=== PATIENT | female | born 1985 | race Two or more races ===

== ENCOUNTER 2023-10-10 11:29 | Observation (INO) | payer MEDICAID, OTHER | END 2023-10-10 13:25 | disposition home or self-care (01) | LOC: UNDOADMOB 11:29 → LDRP 11:29 | PROVIDERS: ADMIT Obstetrics & Gynecology; ATTEND Obstetrics & Gynecology | DX: O36.8130 Decreased fetal movements, third trimester, not applicable or unspecified (principal); Z3A.31 31 weeks gestation of pregnancy; V89.2XXA Person injured in unspecified motor-vehicle accident, traffic, initial encounter; Y93.89 Activity, other specified; Y92.89 Other specified places as the place of occurrence of the external cause; Y99.8 Other external cause status | CPT/HCPCS: 59025; 76815; 81002; G0378 ==

== ENCOUNTER 2023-10-11 13:11 | Emergency (ER) | payer MEDICAID, OTHER ==
[~2023-10-11] VITALS: Ht 160 cm; Wt 72.3 kg
[2023-10-11 14:01] LABS: Basophils # (auto) 0 10 ^3/uL (0-0.2); Basophils % (auto) 0.6 % (0.0-2.0); Eosinophils # (auto) 0.1 10 ^3/uL (0-0.8); Eosinophils % (auto) 0.9 % (0.0-7.0); Hematocrit 36.9 % (36.0-46.0); Hemoglobin 12.1 g/dL (12.2-16.2); Lymphocytes # (auto) 1.1 10 ^3/uL (0.4-5.4); Lymphocytes % (auto) 18.4 % (10.0-50.0); Mean Corpuscular Hemoglobin 27.7 pg (28.0-32.0); Mean Corpuscular Hgb Conc. 32.8 g/dL (32.0-36.0); Mean Corpuscular Volume 84.5 fL (80.0-100.0); Monocytes # (auto) 0.4 10 ^3/uL (0-1.3); Monocytes % (auto) 6.4 % (0.0-12.0); Neutrophils # (auto) 4.5 10 ^3/uL (1.6-8.6); Neutrophils % (auto) 73.7 % (37.0-80.0); Red Blood Cells 4.36 10^6/uL (4.0-5.20); Red Cell Distribution Width 13.7 % (11.8-14.3); White Blood Cell 6.1 10^3/uL (4.4-10.8)
[2023-10-11 14:15] LABS: INR 0.96 (0.9-1.15); Partial Thromboplastin Time 26.2 SEC (24.5-34.5); Prothrombin Time 10.2 sec (9.3-11.8)
[2023-10-11 14:16] LABS: Alanine Aminotransferase 11 U/L (7-40); Albumin 4.1 g/dL (3.2-4.8); Alkaline Phosphatase 64 U/L (46-116); Anion Gap 10 (5-15); Aspartate Aminotransferase < 8 U/L (13-40); BUN/Creatinine Ratio 21.1 (10.0-20.0); Blood Urea Nitrogen 12 mg/dL (9-23); Calcium 9.1 mg/dL (8.5-10.1); Carbon Dioxide 21 mmol/L (20-30); Chloride 107 mmol/L (98-107); Glucose 88 mg/dL (74-106); Potassium 3.8 mmol/L (3.5-5.1); Sodium 138 mmol/L (136-145)
[2023-10-11 14:17] LABS: Bilirubin, Total 0.4 mg/dL (0.2-1.0); Total Protein 6.3 g/dL (5.7-8.2)
[2023-10-11] MEDS: HYDROcodone-ACET 5/325MG TAB PO ONE (15:11)
[2023-10-11 15:22] VITALS: BP 97/67; PULSE 66; RESP 17; TEMP 98.7; O2SAT 97
== END 2023-10-11 16:34 | disposition home or self-care (01) ==
LOC: ER 13:11
DX: O9A.213 Injury, poisoning and certain other consequences of external causes complicating pregnancy, third trimester (principal); R10.2 Pelvic and perineal pain; S06.89AA Other specified intracranial injury with loss of consciousness status unknown, initial encounter; Z3A.32 32 weeks gestation of pregnancy; Z98.890 Other specified postprocedural states; V43.52XA Car driver injured in collision with other type car in traffic accident, initial encounter; Y93.89 Activity, other specified; Y92.89 Other specified places as the place of occurrence of the external cause; Y99.8 Other external cause status
CPT/HCPCS: 36415; 76815; 80053; 83735; 83880; 84484; 84702; 85025; 85610; 85730

== ENCOUNTER 2023-10-31 11:00 | Observation (INO) | payer MEDICAID ==
[2023-10-31 12:45] LABS: Urine Bacteria None Seen /hpf (None Seen)
[2023-10-31 12:49] LABS: Basophils # (auto) 0 10 ^3/uL (0-0.2); Basophils % (auto) 0.7 % (0.0-2.0); Eosinophils # (auto) 0.1 10 ^3/uL (0-0.8); Eosinophils % (auto) 0.8 % (0.0-7.0); Hematocrit 33.7 % (36.0-46.0); Hemoglobin 11.3 g/dL (12.2-16.2); Lymphocytes # (auto) 1.3 10 ^3/uL (0.4-5.4); Lymphocytes % (auto) 21.2 % (10.0-50.0); Mean Corpuscular Hemoglobin 27.9 pg (28.0-32.0); Mean Corpuscular Hgb Conc. 33.4 g/dL (32.0-36.0); Mean Corpuscular Volume 83.4 fL (80.0-100.0); Monocytes # (auto) 0.4 10 ^3/uL (0-1.3); Neutrophils # (auto) 4.5 10 ^3/uL (1.6-8.6); Neutrophils % (auto) 71.3 % (37.0-80.0); Red Blood Cells 4.04 10^6/uL (4.0-5.20); Red Cell Distribution Width 14.3 % (11.8-14.3); White Blood Cell 6.3 10^3/uL (4.4-10.8)
[2023-10-31 12:54] LABS: Protein, Urine 8.3 mg/dL (0.0-11.9)
[2023-10-31 12:57] LABS: Creatinine, Urine 70.99 mg/dL (30.0-125.0); Urine Protein/Creatinine Ratio 0.12
[2023-10-31 13:06] LABS: Urine Blood Negative /uL (Negative); Urine Clarity Clear (Clear); Urine Color Light-Yellow (Yellow); Urine Mucus FEW (None Seen); Urine Protein, UAD Negative (Negative); Urine Specific Gravity 1.013 (1.001-1.035); Urine Urobilinogen Normal (Negative); Urine WBC 2 /hpf (0 - 5); Urine pH 6.5 (5.0-9.0)
[2023-10-31] MEDS ORDERED: PREN-96 PO (13:06)
[2023-10-31] MEDS ORDERED: LEVO100T8 PO (13:06)
[2023-10-31 13:15] LABS: Alanine Aminotransferase 10 U/L (7-40); Albumin 3.8 g/dL (3.2-4.8); Alkaline Phosphatase 63 U/L (46-116); Anion Gap 6 (5-15); Aspartate Aminotransferase 18 U/L (13-40); BUN/Creatinine Ratio 14.6 (10.0-20.0); Blood Urea Nitrogen 7 mg/dL (9-23); Calcium 8.9 mg/dL (8.7-10.4); Carbon Dioxide 23 mmol/L (20-30); Chloride 107 mmol/L (98-107); Glucose 82 mg/dL (74-106); Potassium 3.4 mmol/L (3.5-5.1); Sodium 136 mmol/L (136-145); Uric Acid 2.8 mg/dL (3.1-7.8)
[2023-10-31 13:16] LABS: Bilirubin, Total 0.5 mg/dL (0.2-1.0); Total Protein 6.5 g/dL (5.7-8.2)
[2023-10-31 13:25] LABS: Partial Thromboplastin Time 26.3 SEC (24.5-34.5); Prothrombin Time 10.6 sec (9.3-11.8)
== END 2023-10-31 15:08 | disposition home or self-care (01) ==
LOC: UNDOADMOB 11:00 → LDRP 11:00
PROVIDERS: ADMIT Obstetrics & Gynecology; ATTEND Obstetrics & Gynecology
DX: O13.3 Gestational [pregnancy-induced] hypertension without significant proteinuria, third trimester (principal); O09.523 Supervision of elderly multigravida, third trimester; Z3A.34 34 weeks gestation of pregnancy
CPT/HCPCS: 36415; 59025; 76818; 80053; 81001; 81002; 82570; 84156; 84550; 85025; 85610; 85730; 94760; G0378

== ENCOUNTER 2023-11-02 06:22 | Observation (INO) | payer MEDICAID ==
[~2023-11-02 06:22] MED LIST: LEVO100T8 PO; PREN-96 PO
[2023-11-02 10:43] LABS: Protein, Urine < 6.0 mg/dL (0.0-11.9)
[2023-11-02 11:40] LABS: 24 Hr. Total Protein, Urine < 77.99987 mg/24 Hr (<149.1); Urine Total Volume, 24 Hours 1300 mL
== END 2023-11-02 10:54 | disposition home or self-care (01) ==
LOC: LDRP 09:17
PROVIDERS: ADMIT Obstetrics & Gynecology; ATTEND Obstetrics & Gynecology
DX: O99.353 Diseases of the nervous system complicating pregnancy, third trimester (principal); G43.909 Migraine, unspecified, not intractable, without status migrainosus; O26.893 Other specified pregnancy related conditions, third trimester; H53.8 Other visual disturbances; Z3A.35 35 weeks gestation of pregnancy
CPT/HCPCS: 59025; 76818; 81002; 84156; 94760; G0378

== ENCOUNTER 2023-11-10 18:57 | Observation (INO) | payer MEDICAID ==
[~2023-11-10] VITALS: Ht 160 cm; Wt 74.4 kg
[2023-11-10 19:25] LABS: Urine Bacteria None Seen /hpf (None Seen)
[2023-11-10 19:31] LABS: Basophils # (auto) 0 10 ^3/uL (0-0.2); Basophils % (auto) 0.5 % (0.0-2.0); Eosinophils # (auto) 0.1 10 ^3/uL (0-0.8); Eosinophils % (auto) 1.1 % (0.0-7.0); Hemoglobin 11.6 g/dL (12.2-16.2); Lymphocytes # (auto) 1.3 10 ^3/uL (0.4-5.4); Lymphocytes % (auto) 22.3 % (10.0-50.0); Mean Corpuscular Hemoglobin 27.5 pg (28.0-32.0); Mean Corpuscular Hgb Conc. 33.1 g/dL (32.0-36.0); Monocytes # (auto) 0.5 10 ^3/uL (0-1.3); Monocytes % (auto) 7.7 % (0.0-12.0); Neutrophils # (auto) 4.1 10 ^3/uL (1.6-8.6); Neutrophils % (auto) 68.4 % (37.0-80.0); Red Blood Cells 4.22 10^6/uL (4.0-5.20); Red Cell Distribution Width 14.3 % (11.8-14.3)
[2023-11-10 19:35] LABS: Urine Blood Negative /uL (Negative); Urine Clarity Clear (Clear); Urine Color Light-Yellow (Yellow); Urine Protein, UAD Negative (Negative); Urine Specific Gravity 1.019 (1.001-1.035); Urine Urobilinogen Normal (Negative); Urine WBC 1 /hpf (0 - 5)
[2023-11-10 19:45] LABS: Protein, Urine 11.2 mg/dL (0.0-11.9)
[2023-11-10 19:48] LABS: Creatinine, Urine 88.23 mg/dL (30.0-125.0); Urine Protein/Creatinine Ratio 0.13
[2023-11-10 19:49] LABS: INR 0.95 (0.9-1.15); Partial Thromboplastin Time 25.1 SEC (24.5-34.5); Prothrombin Time 10.1 sec (9.3-11.8)
[2023-11-10 19:51] LABS: Alanine Aminotransferase < 9 U/L (7-40); Albumin 3.9 g/dL (3.2-4.8); Alkaline Phosphatase 71 U/L (46-116); Anion Gap 10 (5-15); Aspartate Aminotransferase 12 U/L (13-40); BUN/Creatinine Ratio 14.5 (10.0-20.0); Bilirubin, Total 0.4 mg/dL (0.2-1.0); Blood Urea Nitrogen 9 mg/dL (9-23); Calcium 9.2 mg/dL (8.7-10.4); Carbon Dioxide 22 mmol/L (20-30); Chloride 108 mmol/L (98-107); Glucose 91 mg/dL (74-106); Potassium 3.8 mmol/L (3.5-5.1); Sodium 140 mmol/L (136-145); Total Protein 6.5 g/dL (5.7-8.2)
== END 2023-11-10 20:15 | disposition home or self-care (01) ==
LOC: LDRP 18:57
PROVIDERS: ADMIT Obstetrics & Gynecology; ATTEND Obstetrics & Gynecology
DX: Z36.89 Encounter for other specified antenatal screening (principal); Z3A.36 36 weeks gestation of pregnancy; Z86.2 Personal history of diseases of the blood and blood-forming organs and certain disorders involving the immune mechanism
CPT/HCPCS: 36415; 59025; 76818; 80053; 81001; 81002; 82570; 84156; 84550; 85025; 85610; 85730; 94760; G0378

== ENCOUNTER 2023-11-17 19:50 | Observation (INO) | payer MEDICAID ==
[~2023-11-17] VITALS: Ht 160 cm; Wt 74.4 kg
[2023-11-17 20:35] LABS: Urine Bacteria None Seen /hpf (None Seen)
[2023-11-17 20:54] LABS: Basophils # (auto) 0 10 ^3/uL (0-0.2); Basophils % (auto) 0.6 % (0.0-2.0); Eosinophils # (auto) 0.1 10 ^3/uL (0-0.8); Eosinophils % (auto) 1.1 % (0.0-7.0); Hemoglobin 10.9 g/dL (12.2-16.2); Lymphocytes # (auto) 1.4 10 ^3/uL (0.4-5.4); Lymphocytes % (auto) 22.1 % (10.0-50.0); Mean Corpuscular Hemoglobin 27.1 pg (28.0-32.0); Mean Corpuscular Volume 82.1 fL (80.0-100.0); Monocytes # (auto) 0.5 10 ^3/uL (0-1.3); Monocytes % (auto) 7.4 % (0.0-12.0); Neutrophils # (auto) 4.2 10 ^3/uL (1.6-8.6); Neutrophils % (auto) 68.8 % (37.0-80.0); Nucleated Red Blood Cells % 0.1 %; Red Blood Cells 4.02 10^6/uL (4.0-5.20); Red Cell Distribution Width 14.3 % (11.8-14.3); White Blood Cell 6.1 10^3/uL (4.4-10.8)
[2023-11-17 21:03] LABS: Protein, Urine 15.5 mg/dL (0.0-11.9)
[2023-11-17 21:05] LABS: Albumin 3.8 g/dL (3.2-4.8); Alkaline Phosphatase 70 U/L (46-116); Anion Gap 8 (5-15); Aspartate Aminotransferase 10 U/L (13-40); BUN/Creatinine Ratio 16.7 (10.0-20.0); Bilirubin, Total 0.4 mg/dL (0.2-1.0); Blood Urea Nitrogen 12 mg/dL (9-23); Carbon Dioxide 19 mmol/L (20-30); Chloride 109 mmol/L (98-107); Glucose 93 mg/dL (74-106); Potassium 3.7 mmol/L (3.5-5.1); Sodium 136 mmol/L (136-145); Total Protein 6.2 g/dL (5.7-8.2); Uric Acid 3.3 mg/dL (3.1-7.8)
[2023-11-17 21:06] LABS: Creatinine, Urine 91.59 mg/dL (30.0-125.0); Urine Protein/Creatinine Ratio 0.17
[2023-11-17 21:11] LABS: INR 0.96 (0.9-1.15); Partial Thromboplastin Time 25.7 SEC (24.5-34.5); Prothrombin Time 10.2 sec (9.3-11.8)
[2023-11-17 21:19] LABS: Urine Blood Negative /uL (Negative); Urine Clarity Clear (Clear); Urine Color Light-Yellow (Yellow); Urine Protein, UAD Negative (Negative); Urine Specific Gravity 1.018 (1.001-1.035); Urine Urobilinogen Normal (Negative); Urine WBC 7 /hpf (0 - 5); Urine pH 6.5 (5.0-9.0)
[2023-11-17 21:22] LABS: Alanine Aminotransferase < 9 U/L (7-40)
== END 2023-11-17 21:53 | disposition home or self-care (01) ==
LOC: LDRP 19:50
PROVIDERS: ADMIT Obstetrics & Gynecology; ATTEND Obstetrics & Gynecology
DX: O13.3 Gestational [pregnancy-induced] hypertension without significant proteinuria, third trimester (principal); Z3A.37 37 weeks gestation of pregnancy
CPT/HCPCS: 36415; 59025; 76818; 80053; 81001; 82570; 84156; 84550; 85025; 85610; 85730; 94760; G0378

== ENCOUNTER 2023-11-28 08:25 | Inpatient (IN) | payer MEDICAID ==
[~2023-11-28] VITALS: Ht 160 cm; Wt 76.2 kg
[2023-11-28 11:17] LABS: Basophils # (auto) 0 10 ^3/uL (0-0.2); Basophils % (auto) 0.6 % (0.0-2.0); Eosinophils # (auto) 0 10 ^3/uL (0-0.8); Eosinophils % (auto) 0.6 % (0.0-7.0); Hematocrit 34.7 % (36.0-46.0); Hemoglobin 11.6 g/dL (12.2-16.2); Lymphocytes # (auto) 1.2 10 ^3/uL (0.4-5.4); Mean Corpuscular Hemoglobin 27.3 pg (28.0-32.0); Mean Corpuscular Hgb Conc. 33.4 g/dL (32.0-36.0); Mean Corpuscular Volume 81.8 fL (80.0-100.0); Monocytes # (auto) 0.4 10 ^3/uL (0-1.3); Monocytes % (auto) 6.4 % (0.0-12.0); Neutrophils # (auto) 4.4 10 ^3/uL (1.6-8.6); Neutrophils % (auto) 72.4 % (37.0-80.0); Nucleated Red Blood Cells % 0.2 %; Red Blood Cells 4.25 10^6/uL (4.0-5.20); Red Cell Distribution Width 14.4 % (11.8-14.3); White Blood Cell 6.1 10^3/uL (4.4-10.8)
[2023-11-28 11:24] LABS: Urine Bacteria FEW /hpf (None Seen); Urine Blood Negative /uL (Negative); Urine Color Light-Yellow (Yellow); Urine Protein, UAD Negative (Negative); Urine Specific Gravity 1.014 (1.001-1.035); Urine Urobilinogen Normal (Negative); Urine WBC 13 /hpf (0 - 5); Urine pH 6.5 (5.0-9.0)
[2023-11-28 11:25] LABS: Amphetamine Screen, Urine Neg (NEGATIVE); Barbiturate Scree,Urine Neg (NEGATIVE); Benzodiazephine Screen, Urine Neg (NEGATIVE); Cannabinoid Screen, Urine Neg (NEGATIVE); Cocaine Screen, Urine Neg (NEGATIVE); Opiate Scree,Urine Neg (NEGATIVE); Phencyclidine Screen, Urine Neg (NEGATIVE)
[2023-11-28 11:30] LABS: Urine Clarity Cloudy (Clear)
[2023-11-28 11:31] LABS: INR 0.98 (0.9-1.15); Partial Thromboplastin Time 26.1 SEC (24.5-34.5); Prothrombin Time 10.4 sec (9.3-11.8)
[2023-11-28 11:33] LABS: Alanine Aminotransferase 10 U/L (7-40); Albumin 3.9 g/dL (3.2-4.8); Alkaline Phosphatase 89 U/L (46-116); Anion Gap 7 (5-15); Aspartate Aminotransferase 12 U/L (13-40); BUN/Creatinine Ratio 18.8 (10.0-20.0); Bilirubin, Total 0.5 mg/dL (0.2-1.0); Blood Urea Nitrogen 9 mg/dL (9-23); Calcium 8.7 mg/dL (8.5-10.1); Carbon Dioxide 22 mmol/L (20-30); Chloride 107 mmol/L (98-107); Glucose 79 mg/dL (74-106); Potassium 3.7 mmol/L (3.5-5.1); Sodium 136 mmol/L (136-145)
[2023-11-28 11:34] LABS: Total Protein 6.3 g/dL (5.7-8.2)
[2023-11-29] VITALS (15 sets, daily range): BP systolic 94–110; BP diastolic 54–80; PULSE 70–108; RESP 14–20; TEMP 97.7–98.8; O2SAT 95–99
[2023-11-29] MEDS ORDERED: METOCLOPRAMIDE HCL 5MG/ml INJ 2ml VIAL IV ONE (05:15)
[2023-11-29] MEDS ORDERED: SODIUM CITR/CITRIC ACID ORAL SOLN 30 ML PO ONE (05:15)
[2023-11-29] MEDS: LACTATED RINGER'S 1,000 ML IV SCH (05:38)
[2023-11-29 07:06] LABS: RPR Non Reactive (Non Reactive)
[2023-11-29] MEDS ORDERED: DOCU-94 PO (07:43)
[2023-11-29] MEDS ORDERED: IBUP-1456 PO (07:43)
[2023-11-29] MEDS ORDERED: HYDR-4902 PO (07:43)
[2023-11-29] MEDS ORDERED: BUTORPHANOL TARTRATE 2 MG/1 ML VIAL IV PRN ×2 (07:45)
[2023-11-29] MEDS ORDERED: PHISODERM TOP SOLN 240ML BTL TOP PRN (07:45)
[2023-11-29] MEDS ORDERED: LACTATED RINGER'S 1,000 ML IV SCH (07:45)
[2023-11-29] MEDS ORDERED: DERMOPLAST 60ML BOTTLE TOP PRN (07:45)
[2023-11-29] MEDS ORDERED: WITCH HAZEL-GLYCERIN PAD TOP PRN (07:45)
[2023-11-29] MEDS ORDERED: LIDOCAINE 2%HCL (LOCAL ANESTH.) INJ 20ML MDV IJ PRN (07:45)
[2023-11-29] MEDS: ceFAZolin 2 GM/D5W50ml 50 ML IV ONE (08:51)
[2023-11-29] MEDS ORDERED: fentaNYL CITRATE 100 MCG/2 ML VL ONE (08:57)
[2023-11-29] MEDS ORDERED: OXYTOCIN 10UNIT/ML 1ML VIAL ONE (08:57)
[2023-11-29] MEDS ORDERED: MORPHINE SULF PF 5 MG/10 ML VIAL ONE (08:57)
[2023-11-29] MEDS ORDERED: ONDANSETRON HCL 4 MG/2 ML VIAL ONE (08:59)
[2023-11-29] MEDS: CARBOPROST TROMETHAMINE 250 MCG/1ML VIAL IM ONE (09:44)
[2023-11-29] MEDS ORDERED: ONDANSETRON HCL 4 MG/2 ML VIAL IV PRN ×2 (10:00→10:45)
[2023-11-29] MEDS ORDERED: DexAMETHasone SOD PHOS 10MG/1ML VIAL INJ ONE (10:00)
[2023-11-29] MEDS ORDERED: GUM (CHEWING) 1 GUM CHEW CHEW ONE (10:00)
[2023-11-29] MEDS ORDERED: diphenhdrAMINE HCL 50 MG/1 ML VL ONE (10:00)
[2023-11-29] MEDS ORDERED: LACT. RINGERS/OXYTOCIN 20UNITS 1,000 ML IV ONE (10:00)
[2023-11-29] MEDS ORDERED: HYDROmorphone HCL 2 MG/ML VL/or syr IV PRN (10:45)
[2023-11-29] MEDS ORDERED: NALOXONE HCL 0.4 MG/ML VIAL IV PRN (10:45)
[2023-11-29] MEDS ORDERED: NALBUPHINE HCL 10 MG/1ml INJECTION SUBCUT ONE (10:45)
[2023-11-29] MEDS: ACETAMINOPHEN IV 1000 MG/100ML (10MG/ML) IV PRN (15:46)
[2023-11-29] MEDS: ceFAZolin 1GM/50ML 50 ML IV SCH (17:29)
[2023-11-29] MEDS ORDERED: diphenhdrAMINE HCL 50 MG/1 ML VL IV PRN (20:00)
[2023-11-29] MEDS: LACTATED RINGER'S 1,000 ML IV ONE (21:46)
[2023-11-29 22:16] LABS: Basophils # (auto) 0 10 ^3/uL (0-0.2); Basophils % (auto) 0.1 % (0.0-2.0); Eosinophils # (auto) 0 10 ^3/uL (0-0.8); Hematocrit 30.7 % (36.0-46.0); Hemoglobin 10.3 g/dL (12.2-16.2); Lymphocytes # (auto) 0.7 10 ^3/uL (0.4-5.4); Lymphocytes % (auto) 7.4 % (10.0-50.0); Mean Corpuscular Hemoglobin 27.6 pg (28.0-32.0); Mean Corpuscular Hgb Conc. 33.6 g/dL (32.0-36.0); Mean Corpuscular Volume 82.1 fL (80.0-100.0); Monocytes # (auto) 0.4 10 ^3/uL (0-1.3); Monocytes % (auto) 4.3 % (0.0-12.0); Neutrophils % (auto) 88.2 % (37.0-80.0); Red Blood Cells 3.75 10^6/uL (4.0-5.20); Red Cell Distribution Width 14.2 % (11.8-14.3); White Blood Cell 9.1 10^3/uL (4.4-10.8)
[2023-11-30] VITALS (12 sets, daily range): BP systolic 86–118; BP diastolic 52–78; PULSE 64–98; RESP 16; TEMP 97.8–98.6; O2SAT 94–99
[2023-11-30] MEDS ORDERED: HYDROcodone-ACET 5/325MG TAB PO PRN (09:30)
[2023-11-30] MEDS ORDERED: BISACODYL 10 MG RECT SUPP PR PRN (09:30)
[2023-11-30] MEDS: DOCUSATE CALCIUM 240 MG CAP PO SCH (09:57)
[2023-11-30] MEDS: DOCUSATE SOD 100 MG CAP PO SCH (09:57)
[2023-11-30] MEDS: HYDROcodone-ACET 5/325MG TAB PO PRN (09:58)
[2023-11-30 10:19] LABS: Basophils # (auto) 0 10 ^3/uL (0-0.2); Basophils % (auto) 0.3 % (0.0-2.0); Eosinophils # (auto) 0 10 ^3/uL (0-0.8); Eosinophils % (auto) 0.2 % (0.0-7.0); Hematocrit 29.9 % (36.0-46.0); Lymphocytes # (auto) 1.1 10 ^3/uL (0.4-5.4); Lymphocytes % (auto) 14.8 % (10.0-50.0); Mean Corpuscular Hemoglobin 27.1 pg (28.0-32.0); Mean Corpuscular Hgb Conc. 33.3 g/dL (32.0-36.0); Mean Corpuscular Volume 81.4 fL (80.0-100.0); Monocytes # (auto) 0.5 10 ^3/uL (0-1.3); Monocytes % (auto) 6.8 % (0.0-12.0); Neutrophils # (auto) 5.6 10 ^3/uL (1.6-8.6); Neutrophils % (auto) 77.9 % (37.0-80.0); Nucleated Red Blood Cells % 0.1 %; Red Blood Cells 3.67 10^6/uL (4.0-5.20); Red Cell Distribution Width 14.5 % (11.8-14.3); White Blood Cell 7.2 10^3/uL (4.4-10.8)
[2023-11-30] MEDS: SIMETHICONE 80 MG CHEWABLE TABLET PO SCH (17:47)
[2023-11-30] MEDS: IBUPROFEN 800 MG TAB PO PRN (19:25)
[2023-12-02 18:06] LABS: Treponema pallidum Ab (FTA-Ab) Non Reactive (Non Reactive)
== END 2023-11-30 22:53 | disposition home or self-care (01) | DRG 539 ==
LOC: EDSTATUS 09:31 → LDRP 11-29 05:01
PROVIDERS: ADMIT Obstetrics & Gynecology; ATTEND Obstetrics & Gynecology
PROC: 0UL70CZ Occlusion of Bilateral Fallopian Tubes with Extraluminal Device, Open Approach (ICD-10-PCS; 2023-11-29)
PROC: 10D00Z1 Extraction of Products of Conception, Low, Open Approach (ICD-10-PCS; principal; 2023-11-29 09:08)
DX: O34.211 Maternal care for low transverse scar from previous cesarean delivery (principal); R71.0 Precipitous drop in hematocrit; Z30.2 Encounter for sterilization; Z37.0 Single live birth; Z3A.38 38 weeks gestation of pregnancy
CPT/HCPCS: 36415; 59025; 80053; 80307; 81001; 85025; 85610; 85730; 86592; 86803; 86850; 86900; 86901; 94760; 94762; 96360; 96361; 96365; 96366; 96374; G0378; J0131; J1100; J2405